=== PATIENT | male | born 1985 | race Caucasian/White ===

== ENCOUNTER 2016-07-16 17:06 | Emergency (ER) | payer MEDICARE | END 2016-07-16 18:02 | disposition home or self-care (01) | LOC: ER1 17:06 | DX: L03.114 Cellulitis of left upper limb (principal); Z88.0 Allergy status to penicillin; Z79.891 Long term (current) use of opiate analgesic | CPT/HCPCS: 96372; 99283 ==

== ENCOUNTER 2016-07-17 11:04 | Emergency (ER) | payer MEDICARE | END 2016-07-17 11:39 | disposition home or self-care (01) | LOC: ER1 11:04 | DX: L03.114 Cellulitis of left upper limb (principal) | CPT/HCPCS: 99282 ==

== ENCOUNTER 2020-04-21 22:19 | Emergency (ER) | payer OTHER | END 2020-04-21 22:50 | disposition left against medical advice (07) | LOC: ER1 22:19 | DX: T40.1X1A Poisoning by heroin, accidental (unintentional), initial encounter (principal); F11.10 Opioid abuse, uncomplicated; Z53.20 Procedure and treatment not carried out because of patient's decision for unspecified reasons | CPT/HCPCS: 71045; 93005; 99285; J2310 ==

== ENCOUNTER 2020-06-06 01:10 | Emergency (ER) | payer OTHER ==
[2020-06-06 01:50] LABS: HEMOGLOBIN 15.5 gm/dl (14.0-17.5); RED BLOOD COUNT 5.15 M/UL (4.20-5.50); WHITE BLOOD COUNT 8.3 K/UL (4.5-11.0)
[2020-06-06 02:16] LABS: BUN/CREATININE RATIO 19 (0-10)
== END 2020-06-06 03:07 | disposition home or self-care (01) ==
LOC: ER1 01:10
PROVIDERS: Family Medicine
DX: R07.89 Other chest pain (principal); F17.210 Nicotine dependence, cigarettes, uncomplicated; Z88.0 Allergy status to penicillin
CPT/HCPCS: 71045; 80053; 82550; 82553; 83874; 84484; 85025; 93005; 99285